=== PATIENT | male | born 1950 | race Caucasian/White ===

== ENCOUNTER 2023-12-08 07:22 | Day surgery (SDC) | payer MEDICARE ==
[~2023-12-08] VITALS: Ht 190.7 cm; Wt 112.9 kg
[2023-12-08] VITALS (8 sets, daily range): BP systolic 131–183; BP diastolic 75–95; PULSE 61–82; TEMP 97.5
[2023-12-08] MEDS ORDERED: LR 1,000 ML IV SCH (08:15)
[2023-12-08] MEDS ORDERED: AMARYL1 MG PO (08:20)
[2023-12-08] MEDS ORDERED: FLOMAX 0.40.4 MG/CAP PO (08:20)
[2023-12-08] MEDS ORDERED: NORVASC 10MG10 MG PO (08:21)
[2023-12-08] MEDS ORDERED: LOPRESSOR100 MG PO (08:21)
[2023-12-08] MEDS ORDERED: LIPITOR 40MG TA40 MG PO (08:22)
[2023-12-08] MEDS ORDERED: K-DUR 10 MEQ T10 MEQ PO (08:23)
[2023-12-08] MEDS ORDERED: GLUCOPHAGE500 MG/TAB PO (08:23)
[2023-12-08] MEDS ORDERED: ZESTRIL40 MG PO (08:24)
[2023-12-08] MEDS ORDERED: HCTZ 25MG TAB25 MG PO (08:24)
[2023-12-08] MEDS ORDERED: ASPIRIN 81M81 MG/TA2 PO (08:25)
[2023-12-08] MEDS ORDERED: MULTIPLE VITAMI1 CAP PO (08:26)
[2023-12-08] MEDS ORDERED: PROBIOTIC ACID1 EAC3 PO (08:26)
--- NOTE | 2023-12-08 08:30 | NUR ---
INT started by [facility] nurse.
[2023-12-08] MEDS ORDERED: Midazolam 2 MG/2 ML VIAL IV SCH (09:57)
[2023-12-08] MEDS ORDERED: fentaNYL 50 MCG/ML 2 ML VIAL IV SCH (09:58)
--- NOTE | 2023-12-08 10:10 | NUR ---
Pipo is transferred back to express unit rm 14 after [address] Jarrett. He is awake and alert, pwd with reg and unlabored resps. dressing to back is clean and dry. No complaints of pain. BS report and handoff of care to Charlette LAUGHLIN.
--- NOTE | 2023-12-08 10:20 | NUR ---
Pt returned from procedure,report from QIAN Briscoe.Dressing to back observed clean,dry, intact. at bedside.Will continue to monitor.
--- NOTE | 2023-12-08 13:01 | NUR ---
Discharge instructions given to pt.Pt verbalizes understanding.Pt escorted out via wheelchair by this nurse.
== END 2023-12-08 15:07 ==
LOC: COL.CAR 07:22
DX: S32.000A Wedge compression fracture of unspecified lumbar vertebra, initial encounter for closed fracture (principal); I10 Essential (primary) hypertension; E11.9 Type 2 diabetes mellitus without complications; J30.2 Other seasonal allergic rhinitis; Z79.899 Other long term (current) drug therapy; Z79.84 Long term (current) use of oral hypoglycemic drugs; Z79.82 Long term (current) use of aspirin; W07.XXXA Fall from chair, initial encounter
CPT/HCPCS: C1713; J0665-JZ; J2250; J3010; J7120